=== PATIENT | female | born 1965 | race Caucasian/White ===

== ENCOUNTER 2017-09-30 08:00 | Outpatient (CLI) | payer BC ==
[2017-09-30 18:56] LABS: BASOPHILS # (AUTO) 0.1 10^3/uL (0.0-0.1); BASOPHILS % (AUTO) 1.2 %; EOSINOPHILS # (AUTO) 0.2 10^3/uL (0.0-0.7); EOSINOPHILS % (AUTO) 3.8 %; HGB - HEMOGLOBIN 12.9 g/dL (12.0-16.0); LYMPHOCYTES # (AUTO) 2.1 10^3/uL (1.5-3.5); LYMPHOCYTES % (AUTO) 50.8 %; MEAN CORPUSCULAR HEMOGLOBIN 29.2 pg (27.0-31.0); MEAN CORPUSCULAR HGB CONC 32.4 g/dL (32.0-36.0); MEAN CORPUSCULAR VOLUME 90.1 fL (81.0-99.0); MEAN PLATELET VOLUME 7.1 fL (7.9-10.8); MONOCYTES # (AUTO) 0.3 10^3/uL (0.0-1.0); MONOCYTES % (AUTO) 8.4 %; NEUTROPHILS # (AUTO) 1.5 10^3/uL (1.5-6.6); NEUTROPHILS % (AUTO) 35.8 %; PLT - PLATELET COUNT 348 10^3/uL (130-450); RED CELL DISTRIBUTION WIDTH 14.2 % (12.0-15.0); WHITE BLOOD COUNT 4.1 x10^3/uL (4.8-10.8)
[2017-09-30 19:08] LABS: ALBUMIN 4.2 g/dL (3.2-5.5); ALBUMIN/GLOBULIN RATIO 1.2 (1.0-2.2); ALKALINE PHOSPHATASE 54 IU/L (42-121); ALT ALANINE AMINOTRANSFERASE 13 IU/L (10-60); AST ASPARTATE AMINOTRANSFERASE 19 IU/L (10-42); BILIRUBIN,TOTAL 0.6 mg/dL (0.2-1.0); BUN - BLOOD UREA NITROGEN 20 mg/dL (6-20); CALCIUM 9.1 mg/dL (8.5-10.3); CARBON DIOXIDE - CO2 27 mmol/L (21-32); CHLORIDE 103 mmol/L (101-111); CHOL/HDL RATIO 4.3 (<4.4); CHOLESTEROL 289 mg/dL; CREATININE 0.7 mg/dL (0.4-1.0); GFR - MDRD 89 (>89); GLUCOSE 79 mg/dL (70-100); HDL CHOLESTEROL 68 mg/dL; LDL CHOLESTEROL,CALCULATED 205 mg/dL; SODIUM 139 mmol/L (135-145); TOTAL PROTEIN 7.8 g/dL (6.7-8.2); VLDL CHOLESTEROL 16 mg/dL
[2017-09-30 19:16] LABS: THYROID STIMULATING HORMONE 0.33 uIU/mL (0.34-5.60)
[2017-09-30 19:51] LABS: FREE T4 (FREE THYROXINE) 0.92 ng/dL (0.58-1.64)
== END 2017-09-30 08:01 ==
LOC: LAB.WCP 08:00
PROVIDERS: ATTEND Physician Assistant Medical
DX: Z00.00 Encounter for general adult medical examination without abnormal findings (principal); E78.5 Hyperlipidemia, unspecified
CPT/HCPCS: 36415; 80053; 80061; 83721; 84439; 84443; 85025

== ENCOUNTER 2017-10-23 08:43 | Outpatient (CLI) | payer BC ==
--- NOTE | 2017-10-26 13:04 | Mammography Report ---
DIGITAL SCREENING MAMMOGRAM: 10/23/2017 CLINICAL INDICATION: A 52-year-old for screening. COMPARISON: 11/2015, 10/2014, 08/2013, 11/2011, 08/2010. TECHNIQUE: Routine CC and MLO projections were obtained of the breasts. FINDINGS: Scattered fibroglandular tissue is present within the breasts. There are no dominant masses, suspicious microcalcifications, or secondary signs of malignancy. In comparison to the previous studies, there are no significant changes. IMPRESSION: NO MAMMOGRAPHIC EVIDENCE OF MALIGNANCY. NO SIGNIFICANT INTERVAL CHANGES. RECOMMENDATION: Screening mammography is recommended annually. BIRADS CATEGORY 1 - NEGATIVE. STANDARD QUALIFYING STATEMENTS: 1. This examination was reviewed with the aid of Computed-Aided Detection (CAD). 2. A negative or benign imaging report should not delay biopsy if clinically suspicious findings are present. Consider surgical consultation if warranted. More than 5% of cancers are not identified by imaging. 3. Dense breasts may obscure an underlying neoplasm. TD: 10/26/2017 13:04
== END 2017-10-23 08:44 | disposition home or self-care (01) ==
LOC: DI.N 08:43
PROVIDERS: ATTEND Physician Assistant Medical
DX: Z12.31 Encounter for screening mammogram for malignant neoplasm of breast (principal)
CPT/HCPCS: 77067

== ENCOUNTER 2019-05-05 11:51 | Outpatient (CLI) | payer BC ==
[2019-05-05 18:55] LABS: EOSINOPHILS # (AUTO) 0.1 10^3/uL (0.0-0.7); EOSINOPHILS % (AUTO) 2.6 %; HGB - HEMOGLOBIN 13.5 g/dL (12.0-16.0); LYMPHOCYTES # (AUTO) 1.6 10^3/uL (1.5-3.5); LYMPHOCYTES % (AUTO) 40.3 %; MEAN CORPUSCULAR HEMOGLOBIN 30.3 pg (27.0-31.0); MEAN CORPUSCULAR HGB CONC 31.9 g/dL (32.0-36.0); MEAN CORPUSCULAR VOLUME 94.8 fL (81.0-99.0); MEAN PLATELET VOLUME 8.9 fL (7.9-10.8); MONOCYTES # (AUTO) 0.4 10^3/uL (0.0-1.0); MONOCYTES % (AUTO) 10.9 %; NEUTROPHILS # (AUTO) 1.8 10^3/uL (1.5-6.6); NEUTROPHILS % (AUTO) 45.2 %; PLT - PLATELET COUNT 323 10^3/uL (130-450); RED BLOOD COUNT 4.46 10^6/uL (4.20-5.40); RED CELL DISTRIBUTION WIDTH 12.9 % (12.0-15.0); WHITE BLOOD COUNT 3.9 x10^3/uL (4.8-10.8)
[2019-05-05 19:22] LABS: ALBUMIN 4.1 g/dL (3.2-5.5); ALBUMIN/GLOBULIN RATIO 1.2 (1.0-2.2); ALKALINE PHOSPHATASE 58 IU/L (42-121); ALT ALANINE AMINOTRANSFERASE 13 IU/L (10-60); AST ASPARTATE AMINOTRANSFERASE 21 IU/L (10-42); BILIRUBIN,TOTAL 0.5 mg/dL (0.2-1.0); BUN - BLOOD UREA NITROGEN 16 mg/dL (6-20); CALCIUM 8.9 mg/dL (8.5-10.3); CARBON DIOXIDE - CO2 27 mmol/L (21-32); CHLORIDE 104 mmol/L (101-111); CHOL/HDL RATIO 3.3 (<4.4); CHOLESTEROL 214 mg/dL; CREATININE 0.7 mg/dL (0.4-1.0); GFR - MDRD 88 (>89); GLUCOSE 81 mg/dL (70-100); HDL CHOLESTEROL 65 mg/dL; LDL CHOLESTEROL,CALCULATED 132 mg/dL; SODIUM 139 mmol/L (135-145); TOTAL PROTEIN 7.6 g/dL (6.7-8.2); VLDL CHOLESTEROL 17 mg/dL
== END 2019-05-05 23:59 ==
LOC: LAB.WCP 11:51
PROVIDERS: ATTEND Physician Assistant Medical
DX: E78.5 Hyperlipidemia, unspecified (principal); E55.9 Vitamin D deficiency, unspecified; Z00.00 Encounter for general adult medical examination without abnormal findings
CPT/HCPCS: 36415; 80053; 80061; 82306; 83721; 84443; 85025

== ENCOUNTER 2020-02-07 08:00 | Outpatient (CLI) | payer BC ==
[2020-02-07 19:03] LABS: BILIRUBIN,URINE NEGATIVE (NEGATIVE); GLUCOSE, URINE (UA) NEGATIVE (NEGATIVE); KETONES,URINE (UA) NEGATIVE (NEGATIVE); LEUKOCYTE ESTERASE, URINE NEGATIVE (NEGATIVE); NITRITE,URINE NEGATIVE (NEGATIVE); OCCULT BLOOD,URINE SMALL (NEGATIVE); PROTEIN,URINE NEGATIVE (NEGATIVE); UROBILINOGEN,URINE 0.2 (NORMAL) E.U./dL (NORMAL)
[2020-02-07 19:15] LABS: CLARITY,URINE CLEAR (CLEAR)
[2020-02-07 19:16] LABS: BACTERIA,URINE Many /HPF (None Seen); RBC,URINE 0-5 /HPF (0-5); SQUAMOUS EPITHELIAL CELL,UR NONE SEEN (<= Few)
== END 2020-02-07 23:59 | disposition home or self-care (01) ==
LOC: LAB.R 08:00
PROVIDERS: ATTEND Physician Assistant Medical
DX: R31.9 Hematuria, unspecified (principal)
CPT/HCPCS: 81001; 87086; 87181

== ENCOUNTER 2020-03-28 07:00 | Outpatient (CLI) | payer BC | END 2020-03-28 23:59 | disposition home or self-care (01) | LOC: COV 07:00 | PROVIDERS: ATTEND Nurse Practitioner Family | DX: R19.7 Diarrhea, unspecified (principal); Z20.828 Contact with and (suspected) exposure to other viral communicable diseases ==

== ENCOUNTER 2020-11-09 15:45 | Outpatient (CLI) | payer BC | END 2020-11-09 23:59 | disposition home or self-care (01) | LOC: LAB.R 15:45 | PROVIDERS: ATTEND Family Medicine | DX: R35.0 Frequency of micturition (principal) | CPT/HCPCS: 87077; 87086; 87181 ==

== ENCOUNTER 2020-11-21 08:00 | Outpatient (CLI) | payer BC ==
[2020-11-21 11:59] LABS: BASOPHILS # (AUTO) 0.1 10^3/uL (0.0-0.1); BASOPHILS % (AUTO) 1.3 %; EOSINOPHILS # (AUTO) 0.2 10^3/uL (0.0-0.7); EOSINOPHILS % (AUTO) 3.4 %; HGB - HEMOGLOBIN 13.4 g/dL (12.0-16.0); LYMPHOCYTES # (AUTO) 2.1 10^3/uL (1.5-3.5); LYMPHOCYTES % (AUTO) 43.4 %; MEAN CORPUSCULAR HEMOGLOBIN 29.8 pg (27.0-31.0); MEAN CORPUSCULAR HGB CONC 31.9 g/dL (32.0-36.0); MEAN CORPUSCULAR VOLUME 93.3 fL (81.0-99.0); MEAN PLATELET VOLUME 8.8 fL (7.9-10.8); MONOCYTES # (AUTO) 0.5 10^3/uL (0.0-1.0); MONOCYTES % (AUTO) 10.5 %; NEUTROPHILS % (AUTO) 41.4 %; PLT - PLATELET COUNT 330 10^3/uL (130-450); RED CELL DISTRIBUTION WIDTH 12.6 % (12.0-15.0); WHITE BLOOD COUNT 4.8 x10^3/uL (4.8-10.8)
[2020-11-21 12:37] LABS: ALBUMIN 4.2 g/dL (3.2-5.5); ALBUMIN/GLOBULIN RATIO 1.1 (1.0-2.2); ALKALINE PHOSPHATASE 72 IU/L (42-121); ALT ALANINE AMINOTRANSFERASE 17 IU/L (10-60); AST ASPARTATE AMINOTRANSFERASE 21 IU/L (10-42); BILIRUBIN,TOTAL 0.6 mg/dL (0.2-1.0); BUN - BLOOD UREA NITROGEN 16 mg/dL (6-20); CALCIUM 9.1 mg/dL (8.5-10.3); CARBON DIOXIDE - CO2 30 mmol/L (21-32); CHLORIDE 101 mmol/L (101-111); CHOL/HDL RATIO 3.1 (<4.4); CHOLESTEROL 219 mg/dL; CREATININE 0.7 mg/dL (0.4-1.0); GFR - MDRD 88 (>89); GLUCOSE 96 mg/dL (70-100); HDL CHOLESTEROL 71 mg/dL; LDL CHOLESTEROL,CALCULATED 134 mg/dL; LDL/HDL RATIO 1.9 (<4.4); POTASSIUM 4.1 mmol/L (3.5-5.0); SODIUM 141 mmol/L (135-145); TRIGLYCERIDES 72 mg/dL; VLDL CHOLESTEROL 14 mg/dL
[2020-11-21 13:04] LABS: THYROID STIMULATING HORMONE 0.5 uIU/mL (0.34-5.60)
== END 2020-11-21 23:59 | disposition home or self-care (01) ==
LOC: LAB.WCP 08:00
PROVIDERS: ATTEND Physician Assistant Medical
DX: Z00.00 Encounter for general adult medical examination without abnormal findings (principal); E78.5 Hyperlipidemia, unspecified
CPT/HCPCS: 36415; 80053; 80061; 83721; 84443; 85025

== ENCOUNTER 2021-09-24 14:00 | Outpatient (CLI) | payer BC ==
--- NOTE | 2021-09-25 07:04 | Mammography Report ---
BILATERAL DIGITAL SCREENING MAMMOGRAM 3D/2D: 09/24/2021 CLINICAL: Routine screening. Comparison is made to exams dated: 10/23/2017 mammogram, 11/09/2015 mammogram, 10/17/2014 mammogram, 08/03 mammogram, and 12/01/2011 mammogram - [facility]. There are scattered fibrog landular elements in both breasts. No significant masses, calcifications, or other findings are seen in either breast. There has been no significant interval change. IMPRESSION: NEGATIVE There is no mammographic evidence of malignancy. A 1 year screening mammogram is recommended. This exam was interpreted at Station ID: [id number]. NOTE: For mammograms, a report in lay terms will be sent to the patient. Approximately 15% of breast malignancies will not be visualized mammographically. In the management of a palpable breast mass, a negative mammogram must not discourage biopsy of a clinically suspicious lesion. Electronically Signed By: Nilesh Hopper acr/penrad:09/24/2021 16:33:46 ACR BI-RADS Category 1: Negative 3341F PARENCHYMAL PATTERN: (A) - The breast(s) demonstrate(s) scattered fibroglandular densities. BI-RADS CATEGORY: (1) - 1 RECOMMENDATION: (ANNUAL) - Recommend routine annual screening mammography. [id number] 1 year screening LATERALITY: (B)
== END 2021-09-24 14:01 | disposition home or self-care (01) ==
LOC: DI.N 14:00
DX: Z12.31 Encounter for screening mammogram for malignant neoplasm of breast (principal)

== ENCOUNTER 2022-05-08 08:00 | Outpatient (CLI) | payer BC | END 2022-05-08 23:59 | disposition home or self-care (01) | LOC: LAB.WCP 08:00 | PROVIDERS: ATTEND Nurse Practitioner | DX: R42 Dizziness and giddiness (principal); Z20.822 Contact with and (suspected) exposure to COVID-19 ==

== ENCOUNTER 2022-11-17 16:00 | Outpatient (CLI) | payer BC | END 2022-11-17 16:15 | disposition home or self-care (01) | LOC: LAB.N 16:00 | PROVIDERS: ATTEND Physician Assistant | DX: Z02.1 Encounter for pre-employment examination (principal) | CPT/HCPCS: 81599; 86480; 86765 ==

== ENCOUNTER 2022-12-20 10:57 | Outpatient (CLI) | payer BC ==
[2022-12-22 15:08] LABS: MEASLES ANTIBODIES IGG >300.0 AU/mL (Immune >16.4)
[2022-12-23 16:08] LABS: MEASLES ANTIBODIES IGM <0.91 ISR (0.00-0.90)
== END 2022-12-20 10:58 | disposition home or self-care (01) ==
LOC: LAB.N 10:57
PROVIDERS: ATTEND Physician Assistant
DX: Z02.1 Encounter for pre-employment examination (principal)
CPT/HCPCS: 36415; 86765

== ENCOUNTER 2023-01-26 09:50 | Outpatient (CLI) | payer BC ==
--- NOTE | 2023-01-27 08:54 | Mammography Report ---
BILATERAL DIGITAL SCREENING MAMMOGRAM 3D/2D: 01/26/2023 CLINICAL: Routine screening. Comparison is made to exams dated: 09/24/2021 mammogram, 10/23/2017 mammogram, 11/09/2015 mammogram, 10/01 mammogram, and 08/17/2013 mammogram - [facility]. There are scattered areas of fibroglandular density in both breasts (category b / 25%-50% glandular t issue). No significant masses, calcifications, or other findings are seen in either breast. There has been no significant interval change. IMPRESSION: NEGATIVE There is no mammographic evidence of malignancy. A 1 year screening mammogram is recommended. Based on the Tyrer Cuzick model (a risk assessment model) the patients lifetime risk is 5.6% and her 10 year risk is 1.7%. According to the ACR, ACS, and NCCN guidelines, an annual breast MRI exam adriana g with mammogram is recommended if the patients lifetime risk is 20% or greater. This exam was interpreted at Station ID: [id number]. NOTE: For mammograms, a report in lay terms will be sent to the patient. Approximately 15% of breast malignancies will not be visualized mammographically. In the management of a palpable breast mass, a negative mammogram must not discourage biopsy of a clinically suspicious lesion. Electronically Signed By: Agustin johnson/jed:01/26/2023 10:39:04 letter sent: No_Letter ACR BI-RADS Category 1: Negative 3341F PARENCHYMAL PATTERN: (A) - The breast(s) demonstrate(s) scattered fibroglandular densities. BI-RADS CATEGORY: (1) - 1 Mammogram [id number] 1 year screening LATERALITY: (B)
== END 2023-01-26 09:51 | disposition home or self-care (01) ==
LOC: DI 09:50
DX: Z12.31 Encounter for screening mammogram for malignant neoplasm of breast (principal)

== ENCOUNTER 2023-01-26 09:51 | Outpatient (CLI) | payer BC ==
--- NOTE | 2023-01-26 12:08 | XRAY Report ---
PROCEDURE: Lumbar Spine 2 View INDICATIONS: LOW BACK PAIN,CHRONIC TECHNIQUE: 3 views of the lumbar spine were acquired. COMPARISON: None. FINDINGS: Bones: 5 [id number] vertebrae are present. Moderate leftward rotoscoliosis of the lumbar spine. There is moderate subluxation to the left of L3 on 4. AP alignment is relatively normal. There are p rominent right-sided ridging endplate osteophytes from L1 to, and L2-3. Severe right-sided disc heigh t loss at L3-4, moderate disc height loss L4-5 and L5-S1. Prominent facet hypertrophy L4-5 and L5-S1 on the left. No vertebral body compression fractures. No suspicious bony lesions. Soft tissues: Overlying bowel gas pattern is normal. No suspicious soft tissue calcifications. Cho lecystectomy clips. IMPRESSION: 1. Chronic appearing levoscoliosis with reactive facet arthropathy and endplate osteophytosis. 2. Moderate to severe multilevel disc height loss, many levels are asymmetric. Reviewed by: Roxana Gonzalez MD on 01/26/2023 12:07 PM PDT Approved by: Roxana Gonzalez MD on 01/26/2023 12:07 PM PDT Station ID: [id number]
== END 2023-01-26 09:52 | disposition home or self-care (01) ==
LOC: DI 09:51
PROVIDERS: ATTEND Physician Assistant Medical
DX: M47.26 Other spondylosis with radiculopathy, lumbar region (principal); M51.16 Intervertebral disc disorders with radiculopathy, lumbar region

== ENCOUNTER 2023-01-29 10:17 | Outpatient (CLI) | payer BC ==
--- NOTE | 2023-01-29 18:57 | XRAY Report ---
PROCEDURE: Hip w/Pelvis 2-3V RT INDICATIONS: HIP PAIN,RIGHT TECHNIQUE: AP pelvis with lateral view(s) of the right hip(s). COMPARISON: None. FINDINGS: Bones: No acute fractures or dislocations. No suspicious bony lesions. Mild degenerative changes of the bilateral hips. Moderate lower lumbar spondylosis. Soft tissues: No suspicious soft tissue calcifications or masses. IMPRESSION: No acute bony abnormality. Mild degenerative changes of the right hip. If there is continued clinical concern for pathology or occult fracture, consider follow-up imaging w ith repeat radiographs in 10-14 days and possible advanced imaging (CT, MRI, bone scan) if symptoms p ersist. Reviewed by: Agustin Mao MD on 01/29/2023 6:56 PM PDT Approved by: Agustin Mao MD on 01/29/2023 6:56 PM PDT Station ID: [id number]
== END 2023-01-29 10:18 | disposition home or self-care (01) ==
LOC: DI 10:17
PROVIDERS: ATTEND Physician Assistant Medical
DX: M16.11 Unilateral primary osteoarthritis, right hip (principal)

== ENCOUNTER 2023-01-29 18:36 | Outpatient (CLI) | payer BC | END 2023-01-29 23:59 | disposition critical access hospital (66) | LOC: EMS 18:36 | DX: M25.551 Pain in right hip (principal) | CPT/HCPCS: A0425; A0429 ==

== ENCOUNTER 2023-01-29 18:56 | Emergency (ER) | payer BC ==
--- NOTE | 2023-01-29 19:20 | ED Physician Documentation ---
History of Present Illness - Stated complaint Stated Complaint: RIGHT HIP PAIN - Chief complaint Chief Complaint: Trauma Ext - Additonal information Additional information: 57-year-old female presents emergency department for evaluation of acute intermittent right hip pain. States the symptoms began now about 2 weeks ago. She states the pain is intermittent and she finds it mostly when she is sitting. If she is sitting in bed and tries to elevate her right leg into bed she finds he gets acutely worse. She is recently underwent x-ray imaging of the lumbar spine and hip without acute findings though arthritis was noted. She has been taking ibuprofen, Tylenol and a muscle relaxer without relief the pain. No fevers. No falls or trauma. The pain was acutely worse this afternoon which she found intolerable thus she called EMS. EMS placed an 18-gauge IV but by the time that had been placed her pain had abated synovial analgesia was given. Review of Systems Constitutional: denies: Fever Musculoskeletal: reports: Joint pain PD PAST MEDICAL HISTORY - Past Surgical History Past Surgical History: Yes General: Cholecystectomy - Present Medications Home Medications: Ambulatory Orders Medication Instructions Recorded Confirmed Ondansetron Odt [Zofran] 4 mg TL Q6H PRN #10 tablet 07/01/14 11/02/15 Meclizine [Antivert] 25 mg PO Q6H PRN #20 tablet 11/02/15 diazePAM [Valium] 5 mg PO TID PRN #15 tablet 11/02/15 ondansetron HCL [Zofran] 4 mg PO Q6HR PRN #14 tablet 11/02/15 - Allergies Allergies/Adverse Reactions: Allergies Allergy/AdvReac Type Severity Reaction Status Date / Time No Known Drug Allergies Allergy Verified 07/01/14 20:50 - Social History Does the pt smoke?: No Smoking Status: Never smoker Does the pt drink ETOH?: No PD ED PE EXPANDED - General General: Alert, No acute distress - Extremities Extremities: Right hip (Full active and passive range of motion of the right hip without any pain elicited. Patient is able to sit upright without pain el icited. No pain in the midline spine or lower lumbar processes. No swelling. No tenderness elicited) Results - Vitals Vitals: Vital Signs - 24 hr 01/29/23 19:00 Temperature 36.9 C Heart Rate 87 Respiratory 18 Rate Blood Pressure 164/110 H O2 Saturation 100 Oxygen O2 Source Room air - Rads (name of study) pelvic CT Relevant Findings:: Final report received (No acute osseous abnormality identified on CT consider MRI to further evaluate for soft tissue or nondisplaced injuries) PD Medical Decision Making - ED course Complexity details: reviewed results, re-evaluated patient, d/w patient ED course: 57-year-old female presents emergency department for evaluation of acute intermittent right hip pain that began about 2 weeks ago. No falls or trauma. She finds that she has the positioning mostly when she is simply sitting. She will have to stand or lay in order to get the pain to stacey. She had a flare of the pain today which she was unable to stacey thus she summoned EMS. She did have lumbar spine imaging as well as right hip imaging completed over the last 2 days which showed no acute findings though there was some suggestion of arthritis. At the time the patient presented here to the ER her pain had abated. I was able to fully range the hip in all planes without eliciting any pain. Subsequently a CT of the hip was completed which did not show any acute obvious fracture or lytic lesions. However given the history and nature of this pain I suspect she has a soft tissue injury or even a labral tear that may be causing this intermittent positional pain. She is advised to follow closely with her PCP in order to obtain an outpatient MRI. Given the lack of fevers or even micromotion tenderness I have lower suspicion for an infectious etiology. Discharged home in stable condition with usual emergent return precautions for worsening symptoms discussed. Departure - Departure Disposition: 01 Home, Self Care Clinical Impression: Acute right hip pain Condition: Stable Record reviewed to determine appropriate education?: Yes Follow-Up: Hilda Durbin PA-C [Provider Admit Priv/Credential] - Comments: As discussed at the bedside the CT scan of your hip does not show any obvious findings as to the cause of your pain. You are developing arthritis within the joint but I suspect she will need an MRI of this hip. It is possible that you have a soft tissue injury or even a labral tear that could be causing the intermittent positional pain. Please discuss this ED visit with Latoya Durbin your primary care doctor tomorrow to request the MRI. Return immediately to the ER if you find that you are having worsening symptoms, pain event that you are unable to position yourself out of or develop any fevers.
--- NOTE | 2023-01-29 19:56 | CT Report ---
PROCEDURE: PELVIS WO INDICATIONS: intermittent right hip pain TECHNIQUE: Noncontrast 3 mm axial sections acquired through the bony pelvis, with coronal and sagittal reformatt ing. For radiation dose reduction, the following was used: automated exposure control, adjustment of mA and/or kV according to patient size. COMPARISON: None. FINDINGS: Image quality: Good Bones: Mild to moderate bilateral degenerative changes. Abductor enthesopathy bilaterally. Partially seen degenerative changes at the lumbosacral junction. No displaced fracture. No dislocation identifi ed. A lucency is seen at the greater trochanter, without aggressive features. Soft tissues: No drainable fluid collection. No suspicious calcifications. No gross abnormality in th e partially visualized intrapelvic structures. IMPRESSION: No acute osseous abnormality identified on CT. Given reported history of acute on chronic pain, consi serg MRI to further evaluate for soft tissue or nondisplaced injuries. Reviewed by: Ricky Gill MD on 01/29/2023 7:55 PM PDT Approved by: Ricky Gill MD on 01/29/2023 7:55 PM PDT Station ID: [id number]
[2023-01-29 20:13] VITALS: BP 168/104
== END 2023-01-29 20:22 | disposition home or self-care (01) ==
LOC: EDUNIT# → ED 18:56
DX: M25.551 Pain in right hip (principal); M16.11 Unilateral primary osteoarthritis, right hip
CPT/HCPCS: 99283; 99284

== ENCOUNTER 2023-02-04 07:43 | Outpatient (CLI) | payer BC ==
--- NOTE | 2023-02-04 08:45 | MRI Report ---
PROCEDURE: HIP WO - RT INDICATIONS: RIGHT HIP PAIN TECHNIQUE: Noncontrast coronal T1 spin echo and STIR through the bony pelvis. Coronal and axial T2 fast spin ec ho with fat saturation, sagittal T1 spin echo, and oblique axial T2 fast spin echo with fat saturatio n through the hip. COMPARISON: None. FINDINGS: Image quality: Excellent. Bones and joints: Mild periarticular osteophyte formation at the bilateral hip joints. Bone marrow of the pelvic ring and proximal femurs show normal signal throughout. No intraosseous lesions or fract ures. No avascular necrosis of the femoral heads. The visualized lower lumbar spine appears normall y aligned. Tendons: The gluteus medius and minimus tendons appear intact, without associated muscle atrophy. Th ere is a small amount of fluid signal within the femoral insertion sites of the gluteus medius and mi nimus tendons. The iliopsoas tendon appears intact, without adjacent bursal fluid collections. The o rigin of the hamstring tendon is intact at the ischial tuberosity. Labrum and cartilage: There is linear high T2 signal intensity undercutting the superolateral labrum. Cartilage surface of the femoral head appears of normal thickness. The alpha angle of the femur is within normal limits at less than 55 degrees. Soft tissues: Visualized muscles demonstrate normal bulk and internal signal. The proximal sciatic neurovascular bundle appears normal adjacent to the hamstring tendons. No free pelvic fluid. Bladde r wall thickness is normal. Genitourinary structures and bowel loops appear normal where visualized. IMPRESSION: 1. 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 2. Partial-thickness tearing of the right gluteus medius and minimus tendons. Reviewed by: Agnes Youngblood MD on 02/04/2023 8:43 AM PDT Approved by: Agnes Youngblood MD on 02/04/2023 8:43 AM PDT Station ID: [id number]
== END 2023-02-04 07:44 | disposition home or self-care (01) ==
LOC: DI 07:43
PROVIDERS: ATTEND Physician Assistant Medical
DX: M16.11 Unilateral primary osteoarthritis, right hip (principal); S73.101A Unspecified sprain of right hip, initial encounter; S76.021A Laceration of muscle, fascia and tendon of right hip, initial encounter

== ENCOUNTER 2023-07-18 14:34 | Emergency (ER) | payer BC ==
--- NOTE | 2023-07-18 16:29 | ED Physician Documentation ---
PD HPI Fall - Stated complaint Stated Complaint: GLF/HEAD INJ - Chief complaint Chief Complaint: Trauma Ch/Bk - History obtained from History obtained from: Patient - History of Present Illness Mechanism of injury: Slipped Fall distance: Standing position Where injury occurred: Home Timing - onset: Enter time (1400), Today Injury(ies) location: Head, Neck, Right Upper Extremity, Left Uppper Extremity, Left Lower Extremity Quality of pain: Pain, Throbbing Associated symptoms: Other (headache). No: LOC, AMS, Amnesia, Seizures, Ear drainage, Nasal drainage, Neck pain, Weakness, Paresthesias, Dyspnea, Nausea / vomiting, Hematemesis, Abdominal distension Symptoms improve with: Rest Worsens with: Movement, Palpation Contributing factors: No: Anticoagulated, Intoxicated Similar symptoms before: Has not had sx before Recently seen: Not recently seen - Additional information Additional information: 57-year-old Ghassan Godwin was in her home attempting to carry a tabletop down the stairs when she slipped on the stairs and the tabletop hit her on the top of the head she struck her left elbow wrenched her right shoulder and struck the posterior aspect of her left hip. She has pain to ambulation she has pain with range of motion of the shoulder and pain to direct palpation of the elbow. She complains of pain to her neck with any movement of her head and she has a hematoma to her forehead and a headache. She denies loss of consciousness she denies nausea, difficulty concentrating or dizziness. Review of Systems Constitutional: denies: Fever Eyes: denies: Decreased vision Ears: denies: Ear pain Nose: denies: Congestion Throat: denies: Sore throat Cardiac: denies: Chest pain / pressure Respiratory: denies: Dyspnea, Cough GI: denies: Abdominal Pain, Nausea, Vomiting, Constipation, Diarrhea : denies: Dysuria, Frequency PD PAST MEDICAL HISTORY - Past Medical History Past Medical History: No - Past Surgical History Past Surgical History: Yes General: Cholecystectomy - Present Medications Home Medications: Ambulatory Orders Medication Instructions Recorded Confirmed Ondansetron Odt [Zofran] 4 mg TL Q6H PRN #10 tablet 07/01/14 11/02/15 Meclizine [Antivert] 25 mg PO Q6H PRN #20 tablet 11/02/15 diazePAM [Valium] 5 mg PO TID PRN #15 tablet 11/02/15 ondansetron HCL [Zofran] 4 mg PO Q6HR PRN #14 tablet 11/02/15 - Allergies Allergies/Adverse Reactions: Allergies Allergy/AdvReac Type Severity Reaction Status Date / Time No Known Drug Allergies Allergy Verified 07/18/23 15:05 - Social History Does the pt smoke?: No Smoking Status: Never smoker Does the pt drink ETOH?: No Does the pt have substance abuse?: No - Immunizations Immunizations are current?: Yes - POLST Patient has POLST: No PD ED PE NORMAL - Vitals Vital signs reviewed: Yes (hypertensive mild ) - General General: Alert and oriented X 3, No acute distress, Well developed/nourished - HEENT HEENT: PERRL, EOMI, Other (hematoma to the left forehead) - Neck Neck: Supple, no meningeal sign, Other (mild megan tenderness to the lower cervi moises spine ) - Cardiac Cardiac: RRR, No murmur - Respiratory Respiratory: No respiratory distress, Clear bilaterally - Abdomen Abdomen: Soft, Non tender - Back Back: No CVA TTP, No spinal TTP - Derm Derm: Normal color, Warm and dry, No rash - Extremities Extremities: No deformity, Other (tenderness anteriorly to the right shoulder with preserved range of motion. bruising and ecchymosis to the olecrenon on L normal ROM. tenderness to the left trochanter posteriorly .) - Neuro Neuro: Alert and oriented X 3, cellular plastics cutter 2-12 intact, No motor deficit, No sensory deficit, Normal speech Eye Opening: Spontaneous Motor: Obeys Commands Verbal: Oriented GCS Score: 15 - Psych Psych: Normal mood, Normal affect Results - Vitals Vitals: Vital Signs - 24 hr 07/18/23 07/18/23 07/18/23 15:00 15:55 17:37 Temperature 35.8 C L Heart Rate 69 68 71 Respiratory 14 14 18 Rate Blood Pressure 143/88 H 140/89 H 137/70 H O2 Saturation 99 97 99 Oxygen O2 Source Room air - Rads (name of study) CT head Relevant Findings:: Prelim report reviewed (Impression: No acute intracranial pathology no intracranial hemorrhage is seen.), EMP independent interpretation of test, See rad report CT cervical spine Relevant Findings:: Prelim report reviewed, EMP independent interpretation of test, See rad report PD Medical Decision Making - ED course Complexity details: reviewed results, re-evaluated patient, considered differential, d/w patient ED course: 57 y/o female with a fall down stairs and a contusion to the forehead has multiple injuries none of which appear significant. She is fully evaluated and imaging is obtained and is negative for specific findings. She is discharged to home with conservative management. She refuses narcotic pain reliever. Departure - Departure Disposition: Home, Self Care Clinical Impression: Sprain of right shoulder joint Qualifiers: Encounter type: initial encounter Shoulder sprain type: unspecified sprain Qualified Code(s): S43.401A - Unspecified sprain of right shoulder joint, initial encounter Left elbow contusion Qualifiers: Encounter type: initial encounter Qualified Code(s): S50.02XA - Contusion of left elbow, initial encounter Contusion, hip Qualifiers: Encounter type: initial encounter Laterality: left Qualified Code(s): S70.02XA - Contusion of left hip, initial encounter Concussion Qualifiers: Encounter type: initial encounter Loss of consciousness presence/duration: without LOC Qualified Code(s): S06.0X0A - Concussion without loss of consciousness, initial encounter Cervical strain, acute Qualifiers: Encounter type: initial encounter Qualified Code(s): S16.1XXA - Strain of muscle, fascia and tendon at neck level, initial encounter Condition: Stable Instructions: ED Concussion, ED Contusion Elbow, ED Contusion Hip, ED Sprain Strain Neck, ED Sprain Shoulder Follow-Up: Hilda Durbin PA-C [Provider Admit Priv/Credential] -
--- NOTE | 2023-07-18 16:46 | XRAY Report ---
PROCEDURE: Hip w/Pelvis 2-3V LT INDICATIONS: fall down stairs pain posterior to trochanter TECHNIQUE: AP pelvis with lateral view(s) of the left hip(s). COMPARISON: Correlation is made with the accompanying plain films. Correlation is also made with [facility] hip plain films, 01/29/2023. FINDINGS: Bones: No fractures or dislocations. No suspicious bony lesions. Degenerative changes are seen thro ughout, including involving the visualized lower lumbar spine. Soft tissues: No suspicious soft tissue calcifications or masses. IMPRESSION: No acute bony abnormality is seen by plain film. Reviewed by: David Hare MD on 07/18/2023 3:44 PM [place] Approved by: David Hare MD on 07/18/2023 3:44 PM [facility] Station ID: [id number]
--- NOTE | 2023-07-18 16:46 | XRAY Report ---
PROCEDURE: Shoulder 3 View RT INDICATIONS: fall anterior pain TECHNIQUE: 3 views of the shoulder were acquired. COMPARISON: Correlation is made with the accompanying plain films. FINDINGS: Bones: No fractures or dislocations. No suspicious bony lesions. Visualized ribs appear intact. T here are degenerative changes seen, including involving the coracoclavicular joint. Soft tissues: No suspicious soft tissue calcifications. The visualized lungs are within normal limi ts. IMPRESSION: No acute bony abnormality is seen on these plain films. Please correlate with focal tenderness. If there is point tenderness (or other clinical concern for a fracture not seen on these plain films) then please consider a dedicated CT study or a short term fo llow up plain film series for further evaluation. Reviewed by: David Hare MD on 07/18/2023 3:45 PM [facility] Approved by: David Hare MD on 07/18/2023 3:45 PM [facility] Station ID: [id number]
--- NOTE | 2023-07-18 16:47 | XRAY Report ---
PROCEDURE: Elbow 3 View LT INDICATIONS: fall olecrenon bruising/pain TECHNIQUE: 3 views of the elbow were acquired. COMPARISON: Correlation is made with the accompanying imaging. FINDINGS: Bones: No acute appearing fractures or dislocations. Chronic appearing fragmentation can be seen inv olving the medial epicondyle. No suspicious bony lesions. Soft tissues: No effusion. No suspicious soft tissue calcifications or masses. IMPRESSION: No acute plain film abnormality is seen. Chronic appearing fragmentation can be seen involving the medial epicondyle. Please correlate with pr ior history of epicondylitis. Reviewed by: David Hare MD on 07/18/2023 3:46 PM [place] Approved by: David Hare MD on 07/18/2023 3:46 PM [facility] Station ID: [id number]
--- NOTE | 2023-07-18 17:45 | CT Report ---
PROCEDURE: HEAD WO INDICATIONS: concussion hematoma headache TECHNIQUE: Noncontrast 4.5 mm thick angled axial sections acquired from the foramen magnum to the vertex. For r adiation dose reduction, the following was used: automated exposure control, adjustment of mA and/or kV according to patient size. COMPARISON: 05/30/2013. Correlation is made with the accompanying cervical spine CT. FINDINGS: Image quality: Excellent. CSF spaces: Basal cisterns are patent. No extra-axial fluid collections. Ventricles are normal in size and shape. Brain: No midline shift. No intracranial masses or hemorrhage. Doherty-white matter interface is norm al. Skull and face: Calvarium and visualized facial bones are intact, without suspicious lesions. Sinuses: Visualized sinuses and mastoids are clear. IMPRESSION: No acute intracranial pathology. No intracranial hemorrhage is seen. Reviewed by: David Hare MD on 07/18/2023 4:43 PM [facility] Approved by: David Hare MD on 07/18/2023 4:43 PM [facility] Station ID: [id number]
--- NOTE | 2023-07-18 17:46 | CT Report ---
PROCEDURE: CERVICAL SPINE WO INDICATIONS: fal head injury neck pain TECHNIQUE: Noncontrast 3 mm thick sections acquired from the skull base to the T4 level. Sagittal and coronal r eformats were then constructed. For radiation dose reduction, the following was used: automated exp osure control, adjustment of mA and/or kV according to patient size. COMPARISON: Correlation is made with the accompanying head CT. FINDINGS: Image quality: Excellent. Bones: No fractures or dislocations. Visualized superior ribs are intact. There is moderate severe disc space narrowing seen at C5-C6 and at C6-C7. Multiple levels of facet hypertrophy can be seen. Soft tissues: Prevertebral soft tissues are normal in thickness. No paravertebral hematomas. No ap ical pneumothoraces. IMPRESSION: Negative for cervical spine fracture. Cervical spine degenerative changes are seen, which are worst inferiorly. Reviewed by: David Hare MD on 07/18/2023 4:44 PM [place] Approved by: David Hare MD on 07/18/2023 4:44 PM [facility] Station ID: [id number]
[2023-07-18 18:13] VITALS: BP 132/78; O2SAT 96
== END 2023-07-18 18:07 | disposition home or self-care (01) ==
LOC: ED 14:34
DX: S50.02XA Contusion of left elbow, initial encounter (principal); S00.83XA Contusion of other part of head, initial encounter; S43.401A Unspecified sprain of right shoulder joint, initial encounter; S70.02XA Contusion of left hip, initial encounter; S06.0X0A Concussion without loss of consciousness, initial encounter; S16.1XXA Strain of muscle, fascia and tendon at neck level, initial encounter; W10.8XXA Fall (on) (from) other stairs and steps, initial encounter; Y93.89 Activity, other specified; Y92.008 Other place in unspecified non-institutional (private) residence as the place of occurrence of the external cause
CPT/HCPCS: 99283; 99284

== ENCOUNTER 2024-01-25 10:10 | Outpatient (CLI) | payer BC ==
[2024-01-25 10:27] LABS: BASOPHILS % (AUTO) 0.9 %; EOSINOPHILS # (AUTO) 0.1 10^3/uL (0.0-0.7); EOSINOPHILS % (AUTO) 2.9 %; HCT - HEMATOCRIT 40.6 % (37.0-47.0); HGB - HEMOGLOBIN 13.1 g/dL (12.0-16.0); LYMPHOCYTES % (AUTO) 44.4 %; MEAN CORPUSCULAR HEMOGLOBIN 30.1 pg (27.0-31.0); MEAN CORPUSCULAR HGB CONC 32.3 g/dL (32.0-36.0); MEAN CORPUSCULAR VOLUME 93.3 fL (81.0-99.0); MEAN PLATELET VOLUME 8.5 fL (7.9-10.8); MONOCYTES # (AUTO) 0.4 10^3/uL (0.0-1.0); MONOCYTES % (AUTO) 9.9 %; NEUTROPHILS # (AUTO) 1.9 10^3/uL (1.5-6.6); NEUTROPHILS % (AUTO) 41.7 %; PLT - PLATELET COUNT 336 10^3/uL (130-450); RED BLOOD COUNT 4.35 10^6/uL (4.20-5.40); RED CELL DISTRIBUTION WIDTH 12.2 % (12.0-15.0); WHITE BLOOD COUNT 4.5 x10^3/uL (4.8-10.8)
[2024-01-25 10:45] LABS: ALBUMIN 4.2 g/dL (3.2-5.5); ALBUMIN/GLOBULIN RATIO 1.4 (1.0-2.2); ALKALINE PHOSPHATASE 69 IU/L (42-121); ALT ALANINE AMINOTRANSFERASE 13 IU/L (10-60); AST ASPARTATE AMINOTRANSFERASE 24 IU/L (10-42); BILIRUBIN,TOTAL 0.5 mg/dL (0.2-1.0); BUN - BLOOD UREA NITROGEN 20 mg/dL (6-20); CALCIUM 9.6 mg/dL (8.5-10.3); CARBON DIOXIDE - CO2 30 mmol/L (21-32); CHLORIDE 102 mmol/L (101-111); CHOL/HDL RATIO 3.5 (<4.4); CHOLESTEROL 190 mg/dL; CREATININE 0.7 mg/dL (0.6-1.3); GFR - MDRD 87 (>89); GLUCOSE 101 mg/dL (74-104); HDL CHOLESTEROL 55 mg/dL; LDL CHOLESTEROL,CALCULATED 108 mg/dL; POTASSIUM 4.4 mmol/L (3.5-4.5); SODIUM 136 mmol/L (135-145); TOTAL PROTEIN 7.3 g/dL (6.4-8.9); TRIGLYCERIDES 134 mg/dL (48-352); VLDL CHOLESTEROL 27 mg/dL
[2024-01-25 11:01] LABS: THYROID STIMULATING HORMONE 0.61 uIU/mL (0.34-5.60)
[2024-01-25 11:08] LABS: FERRITIN 34.7 ng/mL (11.0-306.8)
== END 2024-01-25 10:11 | disposition home or self-care (01) ==
LOC: LAB 10:10
PROVIDERS: ATTEND Physician Assistant Medical
DX: Z00.00 Encounter for general adult medical examination without abnormal findings (principal); E55.9 Vitamin D deficiency, unspecified; R53.83 Other fatigue
CPT/HCPCS: 36415; 80053; 80061; 82306; 82607; 82728; 83721; 84443; 85025